=== PATIENT | female | born 1950 | race Caucasian/White ===

== ENCOUNTER 2018-01-02 14:56 | Inpatient (IN) ==
[2018-01-02] MEDS ORDERED: NON-FORMULARY MEDICATION 1 EACH EACH (Calcium Carbonate/Vitamin D3 [Calcium 500-Vit D3 200 PO SCH (21:00)
[2018-01-02] MEDS: Budesonide/Formoterol 160/4.5 1 PUFF INH IH SCH (21:37)
[2018-01-02] MEDS: *HR* Metformin 500 MG TABLET PO SCH (22:02)
[2018-01-02] MEDS: Melatonin 3 MG TABLET PO SCH (22:02)
[2018-01-02] MEDS: *HR* LORazepam 0.5 MG TABLET PO SCH (22:02)
[2018-01-02 22:30] LABS: Basophils # 0.1 K/mcL (0.0-0.2); Basophils % 0.6 %; Eosinophils # 0.6 K/mcL (0.0-0.6); Eosinophils % 5.7 %; Hematocrit 38.9 % (35.3-44.9); Hemoglobin 12.8 g/dL (11.5-15.4); Immature Granulocytes % 1.3 % (0-4); Lymphocytes # 3.5 K/mcL (0.6-4.6); Lymphocytes % 33.6 %; Mean Corpuscular HGB Conc 32.9 g/dL (31.6-35.5); Mean Corpuscular Hemoglobin 29.5 pg (28.0-33.3); Mean Corpuscular Volume 89.6 fL (83.0-100.0); Mean Platelet Volume 10.3 fL (9.4-12.4); Monocytes # 0.8 K/mcL (0.0-1.3); Monocytes % 7.7 %; Neutrophils # 5.3 K/mcL (1.6-8.9); Platelet Count 340 K/mcL (140-400); Red Blood Count 4.34 M/mcL (3.82-4.97); Red Cell Distribution Width 13.3 % (11.5-14.5); Segmented Neutrophils % 51.1 %
[2018-01-02 22:38] LABS: Prothrombin Time 11.3 Seconds (9.4-12.1)
[2018-01-02 22:41] LABS: Activated Partial Thrombo Time 32.4 Seconds (26.0-36.0)
[2018-01-02 22:49] LABS: BUN/Creatinine Ratio 14 (6-26); Blood Urea Nitrogen 15 mg/dL (8-23); Calcium 9.7 mg/dL (8.6-10.3); Carbon Dioxide 31 mEq/L (23-29); Chloride 101 mEq/L (98-107); Glucose 237 mg/dL (70-105); Osmolality,Calculated 291 (280-300); Potassium 4.7 mEq/L (3.5-5.1); Sodium 136 mEq/L (136-145); eGFR For Non-African Americans 49 (> 60)
[2018-01-02 22:50] LABS: Troponin I < 0.03 ng/mL (< 0.04)
[2018-01-02] MEDS ORDERED: Ipratropium/Albuterol Neb 3 ML IH PRN (23:00)
[2018-01-03] MEDS: *HR* Metformin 500 MG TABLET PO SCH ×2 (07:58→17:45)
[2018-01-03] MEDS: Multivit/Ca/Min/Fe/FA 1 TAB TABLET PO SCH (07:58)
[2018-01-03] MEDS: *HR* Glimepiride 2 MG TABLET PO SCH (07:58)
[2018-01-03] MEDS: *HR* LORazepam 0.5 MG TABLET PO SCH ×3 (07:58→20:44)
[2018-01-03] MEDS: Cholecalciferol (D-3) 1,000 UNIT TABLET PO SCH (07:58)
[2018-01-03] MEDS: Pyridoxine (B-6) 50 MG TABLET PO SCH (07:58)
[2018-01-03] MEDS: Aspirin Enteric Coated 81 MG Tablet PO SCH (07:59)
[2018-01-03] MEDS: (Roflumilast [Daliresp] 500 MCG) PO SCH (07:59)
[2018-01-03] MEDS: Budesonide/Formoterol 160/4.5 1 PUFF INH IH SCH ×2 (09:34→22:05)
--- NOTE | 2018-01-03 14:16 | Internal Med History&Physical ---
Date of Encounter: 01/03/18 Time of Encounter: 13:50 Assessment and Plan (1) Toxic encephalopathy Current visit: No Status: Resolved Continue to monitor. Workup at [facility] showed no structural abnormality or vasculopathy.. (2) Hypothyroidism Current visit: No Status: Chronic TSH normal at 0.430 12/26/2017. Continue present dose Synthroid Qualifiers: Hypothyroidism type: acquired Qualified Code(s): E03.9 - Hypothyroidism, unspecified (3) Diabetes Current visit: No Status: Chronic Hemoglobin A1c was 6.7% on 08/17/2016. Recheck in a.m. Continue Amaryl and Glucophage. Qualifiers: Diabetes mellitus type: type 2 Diabetes mellitus penitentiary insulin use: without long term care pharmacist use Diabetes mellitus complication status: without complication Qualified Code(s): E11.9 - Type 2 diabetes mellitus without complications (4) COPD (chronic obstructive pulmonary disease) Current visit: No Status: Chronic Continue albuterol and duonebs as needed. Qualifiers: COPD type: unspecified COPD Qualified Code(s): J44.9 - Chronic obstructive pulmonary disease, unspecified (5) Lung nodule Current visit: No Status: Acute Chest CTA 12/27/2017 showed 6 mm spiculated right upper lobe nodule. Repeat CT in 6 months to be done. Internal Medicine - H&P: HPI Chief complaint: Altered mental status Admitted From: Hospital to Hospital Transfer Plans for Post Hospital Care: Home History of present illness: Ms. Parkinson is a 67 year old female was transferred to [facility] swing bed January 02 after December 26 hospitalization at [facility] for altered mental status. She had extensive evaluation including neurologic consult, EEG, head and neck CTA, and MRI of brain. She was diagnosed with toxic encephalopathy possibly due to benzodiazepine withdrawal. Neurology did not think there was primary [employer] infectious or inflammatory process. They felt she might have underlying dementia or mood disorder. She was admitted to swing bed for ongoing therapy needs. 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 She does not have documented seizures. Past Med Surg Social Fam HX - Past Medical History Medical history: asthma, COPD, diabetes, fibromyalgia, GERD, hypertension, renal disease, thyroid disease Additional medical history: anemia, vit D deficiency, tachycardia, chronic pain Psychiatric history: no psych history - Past Surgical History Additional surgical history: L ankle, mouth - Social History Smoking Status: Never smoker Smokeless Tobacco Status: No Alcohol use: none Drug use: none - Family History Father Living Status: Hx Family Cardiac Disorders: Yes (NH) Sister Hx Family Cancer: Yes Mother Living Status: Hx Family Cardiac Disorders: Yes (brother,sister) Hx Family Respiratory Disorders: Yes (sister) Hx Family Cancer: Yes (sister,mother) Hx Family Endocrine Disorder: Yes (DM) Hx Family Neuromuscular Disorders: No Hx Family Neurologic Disorders: Yes (stroke) Hx Family HEENT Disorders: No Hx Family Autoimmune Disorders: Yes (mother) Internal Medicine - H&P: Meds Albuterol Sulfate [Ventolin Hfa] 2 puff IH Q6H PRN 12/20/17 [History] Budesonide/Formoterol 160/4.5 [Symbicort 160/4.5] 2 puff IH BIDR 12/20/17 [ History] Calcium Carbonate/Vitamin D3 [Calcium 500-Vit D3 200 Tablet] 1 tab PO BID [History] Glimepiride [Amaryl] 2 mg PO DAILY 12/20/17 [History] Ipratropium/Albuterol Neb [Duoneb] 3 ml IH QID PRN 12/20/17 [History] Levothyroxine Sodium [Levoxyl] 88 mcg PO DAILY 12/20/17 [History] Metformin HCl [Glucophage] 1,000 mg PO BID 12/20/17 [History] Montelukast [Singulair] 10 mg PO DAILY 12/20/17 [History] Omeprazole [PriLOSEC] 20 mg PO DAILY 12/20/17 [History] Pravastatin Sodium [Pravachol] 40 mg PO QPM 12/20/17 [History] Aspirin Enteric Coated [Aspirin EC] 81 mg PO DAILY #30 tablet. 01/01/18 [Rx] Carvedilol [Coreg] 25 mg PO BIDWM #60 tablet 01/01/18 [Rx] LORazepam [Ativan] 0.5 mg PO TID 7 Days #21 tablet 01/01/18 [Rx] Losartan [Cozaar] 25 mg PO DAILY #30 tablet 01/01/18 [Rx] Mv,Calcium,Min/Iron/Folic/Vitk [Multi For Her Tablet] 1 each PO DAILY #30 tablet 01/01/18 [Rx] Pyridoxine (B-6) [Vitamin B-6] 50 mg PO DAILY #30 tablet 01/01/18 [Rx] Roflumilast [Daliresp] 500 mcg PO DAILY 01/02/18 [History] 3 Allergy/AdvReac Type Severity Reaction Status Date / Time Penicillins AdvReac Severe Hives Verified 12/27/17 10:16 Cephalosporins AdvReac Intermediate n/v Verified 12/27/17 10:16 codeine AdvReac Intermediate dyspnea Verified 12/27/17 10:16 Sulfa (Sulfonamide AdvReac Intermediate edema Verified 12/27/17 10:16 Antibiotics) hydroxyzine AdvReac Mild edema Verified 12/27/17 10:16 baclofen AdvReac Agitated Verified 12/27/17 10:16 clonidine AdvReac Unresponsiv Verified 12/27/17 10:22 e All Systems PM: A 10-system review of systems was performed and is negative for pertinent findings except as documented above in the HPI. Review of systems: Gen.: She states her weight has declined approximate 5 pounds in the past year Cardiovascular: She has history of hypertension. Echocardiogram on 12/29/2017 showed LVEF 65-70% with indeterminate diastolic function. No significant valvular abnormalities were seen. Regadenoson stress test 04/06/2016 showed LVEF of 73% with diffusion imaging and EKG negative for ischemia. She denies DVT or pulmonary embolus Respiratory: She is a lifelong nonsmoker. Pulmonary function testing 2015 showed severe COPD. She wears oxygen at at bedtime and when necessary during the daytime. She has had negative AMANDA evaluation. GI: She denies disorders of her liver gallbladder or exocrine pancreas : She has chronic kidney disease stage III and follows with a power regulator. She denies other kidney or bladder disorders. Neurologic: As per history of present illness Endocrine: She was diagnosed with DM 2 approximately 2001. She has hypothyroidism and hyperlipidemia. Hematology/oncology: She denies internal malignancies. She reports a history of anemia. Psychiatric: She reports anxiety but denies depression or other mental health issues [place] skeletal: She has minimal DJD. She has had left ankle and toe surgery remotely. She denies gout or other bone joint or muscle disorders. - Constitutional Vitals: Temp Pulse Resp BP Pulse Ox 98.7 F 96 16 125/64 96 01/03/18 11:42 01/03/18 11:42 01/03/18 11:42 01/03/18 11:42 01/03/18 11:42 Exam: Gen.: She is a well-developed well-nourished female lying quietly in bed who appears in no acute distress at present time HEENT: Head is atraumatic and normocephalic. Eyes: EOMI. There is no scleral icterus. Mouth: Mucosa is moist. Neck: Supple and nontender. There is no thyromegaly or adenopathy noted. Heart: Regular without murmurs gallops or ectopics Lungs: No wheezes or crackles are heard. Abdomen: Soft and nontender. No masses or guarding are noted. Extremities: There is no cyanosis edema or clubbing noted. Dorsalis pedis and posttibial pulses are 1-2 over 2 bilaterally. Neurologic: Mental status: She is talkative and a good historian. Cranial nerves: Smile is symmetric. Forehead wrinkles bilaterally. Tongue protrudes midline. EOMI. Motor: There is no pronator drift. Cerebellar: Finger to nose is intact with the left arm. The right arm is limited motion because of IV in right antecubital area. Skin: Warm and dry Internal Med - H&P Results - Labs CBC & Chem 7: 01/02/18 22:18 01/02/18 22:18 Labs: Short CBC 01/02/18 Range/Units 22:18 WBC 10.4 (4.3-11.1) K/mcL Hgb 12.8 D (11.5-15.4) g/dL Hct 38.9 (35.3-44.9) % Plt Count 340 (140-400) K/mcL Neutrophils # 5.3 (1.6-8.9) K/mcL BMP 01/02/18 22:18 Sodium 136 Potassium 4.7 Chloride 101 Carbon Dioxide 31 H BUN 15 Creatinine 1.11 Glucose 237 H Calcium 9.7 Cardiac Enzymes 01/02/18 Range/Units 22:18 Troponin I < 0.03 (< 0.04) ng/mL - Impressions ITS Impressions Head CT 01/02/18 22:21 IMPRESSION: No acute intracranial abnormality. D/ / Raciel Lai MD / Raciel Lai MD Interpreting Provider: Raciel Lai MD
[2018-01-03] MEDS: Melatonin 3 MG TABLET PO SCH (20:45)
[2018-01-04 05:24] LABS: Basophils # 0.1 K/mcL (0.0-0.2); Basophils % 0.4 %; Eosinophils # 0.5 K/mcL (0.0-0.6); Eosinophils % 3.9 %; Hemoglobin 12.2 g/dL (11.5-15.4); Immature Granulocytes % 0.6 % (0-4); Lymphocytes # 4.1 K/mcL (0.6-4.6); Lymphocytes % 35.2 %; Mean Corpuscular Hemoglobin 29.9 pg (28.0-33.3); Mean Corpuscular Volume 90.7 fL (83.0-100.0); Mean Platelet Volume 10.5 fL (9.4-12.4); Monocytes # 0.8 K/mcL (0.0-1.3); Monocytes % 6.9 %; Neutrophils # 6.2 K/mcL (1.6-8.9); Platelet Count 300 K/mcL (140-400); Red Blood Count 4.08 M/mcL (3.82-4.97); Red Cell Distribution Width 13.5 % (11.5-14.5)
[2018-01-04 09:02] LABS: Estimated Average Glucose 140 mg/dl; Hemoglobin A1C 6.5 %
[2018-01-04] MEDS: Budesonide/Formoterol 160/4.5 1 PUFF INH IH SCH ×2 (09:12→21:51)
[2018-01-04] MEDS: *HR* Metformin 500 MG TABLET PO SCH (09:53)
[2018-01-04] MEDS: Pyridoxine (B-6) 50 MG TABLET PO SCH (09:53)
[2018-01-04] MEDS: Multivit/Ca/Min/Fe/FA 1 TAB TABLET PO SCH (09:53)
[2018-01-04] MEDS: Cholecalciferol (D-3) 1,000 UNIT TABLET PO SCH (09:53)
[2018-01-04] MEDS: *HR* Glimepiride 2 MG TABLET PO SCH (09:54)
[2018-01-04] MEDS: Aspirin Enteric Coated 81 MG Tablet PO SCH (09:54)
[2018-01-04] MEDS: *HR* LORazepam 0.5 MG TABLET PO SCH ×3 (09:54→21:37)
[2018-01-04] MEDS: (Roflumilast [Daliresp] 500 MCG) PO SCH (09:57)
--- NOTE | 2018-01-04 10:48 | Internal Med Progress Note ---
Date of Encounter: 01/04/18 Time of Encounter: 10:25 - Assessment and plan (1) Toxic encephalopathy Current Visit: No Status: Suspected Assessment and plan: January 04. Continue to monitor. Workup at [facility] showed no structural abnormality or vasculopathy. (2) Hypothyroidism Current Visit: No Status: Chronic Assessment and plan: January 04. TSH was normal at 0.43 on 12/26/2017. Continue Synthroid. Qualifiers: Hypothyroidism type: acquired Qualified Code(s): E03.9 - Hypothyroidism, unspecified (3) Diabetes Current Visit: No Status: Chronic Assessment and plan: January 04. Hemoglobin A1c was 6.5% today. Continue Amaryl and Glucophage. Qualifiers: Diabetes mellitus type: type 2 Diabetes mellitus [facility] insulin use: without exterminator use Diabetes mellitus complication status: without complication Qualified Code(s): E11.9 - Type 2 diabetes mellitus without complications (4) COPD (chronic obstructive pulmonary disease) Current Visit: No Status: Chronic Assessment and plan: January 04. Continue present regimen Qualifiers: COPD type: unspecified COPD Qualified Code(s): J44.9 - Chronic obstructive pulmonary disease, unspecified (5) Lung nodule Current Visit: No Status: Acute Assessment and plan: January 04. Chest CTA 12/27/2017 showed 6 mm spiculated right upper lobe nodule. Repeat CT in 6 months. - Subjective Interval history: January 04. She has no new complaints. She denies pain or dyspnea. She states she wants to go home. - Constitutional Vitals: Temp Pulse Resp BP Pulse Ox 97.5 F L 76 16 152/88 98 01/04/18 06:39 01/04/18 06:39 01/04/18 09:14 01/04/18 06:39 01/04/18 09:14 Exam: She is resting comfortably in a chair at bedside. Her affect is bright and cheerful. Heart is regular without murmurs gallops or ectopics. Lungs are clear. I reviewed her medications and lab results. Internal Medicine: Result - Labs CBC & Chem 7: 01/04/18 04:43 01/02/18 22:18 Labs: Short CBC 01/04/18 Range/Units 04:43 WBC 11.7 H (4.3-11.1) K/mcL Hgb 12.2 (11.5-15.4) g/dL Hct 37.0 (35.3-44.9) % Plt Count 300 (140-400) K/mcL Neutrophils # 6.2 (1.6-8.9) K/mcL - ABG Interpretation ABG results: PT/INR, D-dimer PT 11.3 Seconds (9.4-12.1) 01/02/18 22:18 Consult Discharge Plan - Plan Referrals: Oleg Khanna MD [Primary Care Provider] - 1 week
[2018-01-04] MEDS ORDERED: *HR* Dextrose 50 % in Water (Syg) 50 ML SYRINGE IVP PRN (16:33)
[2018-01-04] MEDS ORDERED: Dextrose Gel 15 GM/37.5 ML TUBE PO PRN ×2 (16:33)
[2018-01-04] MEDS ORDERED: D5% in Water 1,000 ML IVC PRN (16:33)
[2018-01-04] MEDS: Melatonin 3 MG TABLET PO SCH (21:37)
[2018-01-04] MEDS: Insulin LISPRO 300 UNITS/3 ML VIAL SQ SCH (21:46)
[2018-01-05] MEDS: Budesonide/Formoterol 160/4.5 1 PUFF INH IH SCH ×2 (09:54→22:06)
[2018-01-05] MEDS: *HR* LORazepam 0.5 MG TABLET PO SCH ×3 (10:15→21:41)
[2018-01-05] MEDS: Cholecalciferol (D-3) 1,000 UNIT TABLET PO SCH (10:15)
[2018-01-05] MEDS: Aspirin Enteric Coated 81 MG Tablet PO SCH (10:15)
[2018-01-05] MEDS: *HR* Glimepiride 2 MG TABLET PO SCH (10:15)
[2018-01-05] MEDS: (Roflumilast [Daliresp] 500 MCG) PO SCH (10:16)
[2018-01-05] MEDS: Multivit/Ca/Min/Fe/FA 1 TAB TABLET PO SCH (10:16)
[2018-01-05] MEDS: Pyridoxine (B-6) 50 MG TABLET PO SCH (10:16)
[2018-01-05] MEDS: Insulin LISPRO 300 UNITS/3 ML VIAL SQ SCH ×4 (10:25→21:42)
[2018-01-05] MEDS: Melatonin 3 MG TABLET PO SCH (21:41)
[2018-01-06] MEDS: *HR* LORazepam 0.5 MG TABLET PO SCH ×3 (09:25→21:10)
[2018-01-06] MEDS: *HR* Glimepiride 2 MG TABLET PO SCH (09:25)
[2018-01-06] MEDS: Multivit/Ca/Min/Fe/FA 1 TAB TABLET PO SCH (09:25)
[2018-01-06] MEDS: Insulin LISPRO 300 UNITS/3 ML VIAL SQ SCH ×3 (09:25→17:20)
[2018-01-06] MEDS: Pyridoxine (B-6) 50 MG TABLET PO SCH (09:25)
[2018-01-06] MEDS: Aspirin Enteric Coated 81 MG Tablet PO SCH (09:25)
[2018-01-06] MEDS: Cholecalciferol (D-3) 1,000 UNIT TABLET PO SCH (09:25)
[2018-01-06] MEDS: (Roflumilast [Daliresp] 500 MCG) PO SCH (09:26)
[2018-01-06] MEDS: Budesonide/Formoterol 160/4.5 1 PUFF INH IH SCH ×2 (10:10→22:23)
--- NOTE | 2018-01-06 11:22 | Internal Med Progress Note ---
Date of Encounter: 01/06/18 Time of Encounter: 11:15 - Assessment and plan (1) Toxic encephalopathy Current Visit: No Status: Suspected Assessment and plan: January 04. Continue to monitor. Workup at [facility] showed no structural abnormality or vasculopathy. (2) Hypothyroidism Current Visit: No Status: Chronic Assessment and plan: January 04. TSH was normal at 0.43 on 12/26/2017. Continue Synthroid. Qualifiers: Hypothyroidism type: acquired Qualified Code(s): E03.9 - Hypothyroidism, unspecified (3) Diabetes Current Visit: No Status: Chronic Assessment and plan: January 04. Hemoglobin A1c was 6.5% today. Continue Amaryl and Glucophage. Qualifiers: Diabetes mellitus type: type 2 Diabetes mellitus group home insulin use: without long term care pharmacist use Diabetes mellitus complication status: without complication Qualified Code(s): E11.9 - Type 2 diabetes mellitus without complications (4) COPD (chronic obstructive pulmonary disease) Current Visit: No Status: Chronic Assessment and plan: January 04. Continue present regimen Qualifiers: COPD type: unspecified COPD Qualified Code(s): J44.9 - Chronic obstructive pulmonary disease, unspecified (5) Lung nodule Current Visit: No Status: Acute Assessment and plan: January 04. Chest CTA 12/27/2017 showed 6 mm spiculated right upper lobe nodule. Repeat CT in 6 months. - Subjective Interval history: January 04. She has no new complaints. She denies pain or dyspnea. She states she wants to go home. January 06. She has no new complaints. She denies pain or dyspnea. She inquired again about going home. - Constitutional Vitals: Temp Pulse Resp BP Pulse Ox 98.7 F 86 12 148/73 99 01/06/18 07:03 01/06/18 07:03 01/06/18 10:10 01/06/18 07:03 01/06/18 10:10 Exam: She is resting comfortably in bed and appears in no acute distress. Heart is regular without murmurs gallops or ectopics. Lungs are clear anteriorly. Extremities show no pitting edema. I reviewed her medications and lab results. Internal Medicine: Result - Labs CBC & Chem 7: 01/04/18 04:43 01/02/18 22:18 - ABG Interpretation ABG results: PT/INR, D-dimer PT 11.3 Seconds (9.4-12.1) 01/02/18 22:18 Consult Discharge Plan - Plan Referrals: Oleg Khanna MD [Primary Care Provider] - 1 week
[2018-01-06] MEDS: Melatonin 3 MG TABLET PO SCH (21:09)
[2018-01-07] MEDS: Insulin LISPRO 300 UNITS/3 ML VIAL SQ SCH ×4 (01:27→12:02)
[2018-01-07 07:38] VITALS: BP 118/70
[2018-01-07] MEDS: Budesonide/Formoterol 160/4.5 1 PUFF INH IH SCH (09:16)
[2018-01-07] MEDS: Aspirin Enteric Coated 81 MG Tablet PO SCH (10:00)
[2018-01-07] MEDS: Pyridoxine (B-6) 50 MG TABLET PO SCH (10:00)
[2018-01-07] MEDS: *HR* LORazepam 0.5 MG TABLET PO SCH ×2 (10:01→14:56)
[2018-01-07] MEDS: Multivit/Ca/Min/Fe/FA 1 TAB TABLET PO SCH (10:01)
[2018-01-07] MEDS: *HR* Glimepiride 2 MG TABLET PO SCH (10:02)
[2018-01-07] MEDS: Cholecalciferol (D-3) 1,000 UNIT TABLET PO SCH (10:09)
--- NOTE | 2018-01-07 14:47 | Discharge Summary ---
Date of Encounter: 01/07/18 Time of Encounter: 14:35 - Discharge Diagnosis (1) Toxic encephalopathy Priority: Primary Status: Suspected (2) Hypothyroidism Priority: Secondary Status: Chronic Qualifiers: Hypothyroidism type: acquired Qualified Code(s): E03.9 - Hypothyroidism, unspecified (3) Diabetes Priority: Secondary Status: Chronic Qualifiers: Diabetes mellitus type: type 2 Diabetes mellitus intermodal truck driver insulin use: without shelter use Diabetes mellitus complication status: without complication Qualified Code(s): E11.9 - Type 2 diabetes mellitus without complications (4) COPD (chronic obstructive pulmonary disease) Priority: Secondary Status: Chronic Qualifiers: COPD type: unspecified COPD Qualified Code(s): J44.9 - Chronic obstructive pulmonary disease, unspecified (5) Lung nodule Priority: Secondary Status: Chronic Hospital course: Ms. Parkinson is a 67 year old female who was transferred to [facility] swing bed January 02 after December 26 hospitalization at [facility] for altered mental status. She had extensive evaluation including neurologic consult, EEG, head and neck CTA, and MRI of brain. She was diagnosed with toxic encephalopathy possibly due to benzodiazepine withdrawal. Neurology did not think there was primary [employer] infectious or inflammatory process. They felt she might have underlying dementia or mood disorder. She was admitted to swing bed for ongoing therapy needs. Initial orders were written by the discharging physician at [facility]. I saw her on January 03 and performed the swing bed history and physical. Physical therapy and occupational therapy evaluations with ongoing intervention were done. She progressed satisfactorily and on January 07 she felt stable for discharge home. Her mental status remained appropriate without evidence of encephalopathy. Chest CTA report of 12/27/2017 was reviewed which showed a 6 mm spiculated right upper lobe nodule. Repeat CT scan 6 months was recommended. Her PCP can follow up on this. She will follow with her PCP Dr. Khanna within 1 week. - Time Spent with Patient Total time spent providing and/or coordinating discharge services: - Discharge Medications Home Medications: Albuterol Sulfate [Ventolin Hfa] 2 puff IH Q6H PRN 12/20/17 [History] Budesonide/Formoterol 160/4.5 [Symbicort 160/4.5] 2 puff IH BIDR 12/20/17 [ History] Calcium Carbonate/Vitamin D3 [Calcium 500-Vit D3 200 Tablet] 1 tab PO BID [History] Glimepiride [Amaryl] 2 mg PO DAILY 12/20/17 [History] Ipratropium/Albuterol Neb [Duoneb] 3 ml IH QID PRN 12/20/17 [History] Levothyroxine Sodium [Levoxyl] 88 mcg PO DAILY 12/20/17 [History] Metformin HCl [Glucophage] 1,000 mg PO BID 12/20/17 [History] Montelukast [Singulair] 10 mg PO DAILY 12/20/17 [History] Omeprazole [PriLOSEC] 20 mg PO DAILY 12/20/17 [History] Pravastatin Sodium [Pravachol] 40 mg PO QPM 12/20/17 [History] Aspirin Enteric Coated [Aspirin EC] 81 mg PO DAILY #30 tablet. 01/01/18 [Rx] Carvedilol [Coreg] 25 mg PO BIDWM #60 tablet 01/01/18 [Rx] LORazepam [Ativan] 0.5 mg PO TID 7 Days #21 tablet 01/01/18 [Rx] Losartan [Cozaar] 25 mg PO DAILY #30 tablet 01/01/18 [Rx] Mv,Calcium,Min/Iron/Folic/Vitk [Multi For Her Tablet] 1 each PO DAILY #30 tablet 01/01/18 [Rx] Pyridoxine (B-6) [Vitamin B-6] 50 mg PO DAILY #30 tablet 01/01/18 [Rx] Roflumilast [Daliresp] 500 mcg PO DAILY 01/02/18 [History] Allergies/Adverse Reactions: 3 Allergy/AdvReac Type Severity Reaction Status Date / Time Penicillins AdvReac Severe Hives Verified 12/27/17 10:16 Cephalosporins AdvReac Intermediate n/v Verified 12/27/17 10:16 codeine AdvReac Intermediate dyspnea Verified 12/27/17 10:16 Sulfa (Sulfonamide AdvReac Intermediate edema Verified 12/27/17 10:16 Antibiotics) hydroxyzine AdvReac Mild edema Verified 12/27/17 10:16 baclofen AdvReac Agitated Verified 12/27/17 10:16 clonidine AdvReac Unresponsiv Verified 12/27/17 10:22 e Date of admission: 01/02/18 17:34 Primary care physician: Oleg Khanna MD Consults: 01/02/18 18:07 Consult to Nutrition [CONS] Routine Comment: Consulting Provider: NUTRITION Reason for Dietary Consult: MST Score 01/02/18 18:56 Consult to Occupational Therapy [CONS] Routine Comment: Evaluate, develop and implement POC Reason for Consult: Evaluate, develop and implement POC Does patient have active BEDREST order?: No Is patient medically & hemodynamically stable?: Yes Consult to Physical Therapy [CONS] Routine Comment: Evaluate, develop and implement POC Reason for Consult: Evaluate, develop and implement POC Does patient have active BEDREST order?: No Is patient medically & hemodynamically stable?: Yes - Constitutional Vitals: Temp Pulse Resp BP Pulse Ox 98.3 F 71 18 118/70 99 01/07/18 07:32 01/07/18 07:32 01/07/18 09:17 01/07/18 07:32 01/07/18 09:17 - Patient Status Disposition: Home, Self-Care - Discharge Instructions Follow Up With: Oleg Khanna MD [Primary Care Provider] - 1 week - Diet and Activity Activity: as per physical therapy, wear oxygen at night Diet: diabetic diet
== END 2018-01-07 16:54 | disposition home or self-care (01) | DRG 92 ==
LOC: INPPIK 17:34
PROVIDERS: ADMIT Internal Medicine; ATTEND Internal Medicine